=== PATIENT | female | born 1965 | race Caucasian/White ===

== ENCOUNTER → 2016-10-05 | Outpatient (CLI) | payer OTHER ==
--- NOTE | 2016-10-05 18:19 | PCVCIMAG ---
APPROVED REPORT Exam: Stress Echocardiogram Indication: Hypertension,lt arm tingling,fam hx early onset cad Patient Location: Echo lab Stress Nurse: Rhiannon Barros RN Status: routine Ht: 5 ft 7 in HR: 74 bpm BP: 110/80 mmHg Rhythm: NSR Medical History Medical History: HTN, No history of CAD Cardiac Risk Factors: HTN, FHX of CAD Pretest Chest Pain Characteristics: No chest pain Procedure The patient underwent an Exercise Stress Test using the Monique Protocol. Blood pressure, heart rate, and EKG were monitored. An Echocardiogram was performed by x ray service technician in four stages in quad fashion. At peak stress, four selected images were obtained and placed side by side with resting images for comparison. Stress Test Details Stress Test: Exercise stress testing was performed using a Monique protocol. HR Resting HR: 74 bpmMax Heart Rate (APMHR): 167 bpm Max HR Achieved: 184 bpmTarget HR (85% APMHR): 141 bpm % of APMHR: 110 Recovery HR: 97 bpm HR response to stress: Normal HR response to stress BP Resting BP: 110/80 mmHg Max BP: 130/66 mmHg Recovery BP: 100/60 mmHg ECG Resting ECG: Sinus Rhythm Stress ECG: Sinus Rhythm ST Change: Non-ischemic Arrhythmia: Rare PVCs Recovery ECG: Sinus Rhythm Recovery ST Change: Non-ischemic Recovery Arrhythmia: None Clinical Reason for Termination: Maximal effort, Dyspnea Stress Symptoms: None Exercise duration: 11 min 04 sec Highest Stage Achieved: Stage 4: 4.2 mph at 16% grade. Exercise capacity: 13.4 METs Overall Exercise Capacity for Age: Good Angina Score: None Stress ECG Conclusion The patient exercised according to the MONIQUE protocol for11:04 min, achieving a work level of Max. METS: 13.4 . The resting heart rate of 74 bpm ruben to a maximal heart rate of 184 bpm. This value represents 110 % of the maximal, age-predicted heart rate. The resting blood pressure of 110/80 mmHg, ruben to a maximum blood pressure of 130/66 mmHg. The exercise test was stopped due to fatigue and dyspnea. Pre-Stress Echo The resting Echocardiogram showed normal left ventricular contractility with an estimated Ejection Fraction of about 55-60%. Normal wall motion in all segments on baseline images. Post-Stress Echo The stress Echocardiogram showed normal left ventricular contractility with an estimated Ejection Fraction of about 65-70%. Normal augmentation of wall motion in all segments on post stress images. Clinical No clinical or ECG evidence for ischemia. Conclusion Clinical Response: Non-ischemic Exercise Capacity: Superior Stress ECG Response: Non-ischemic Stress Echo Images: Non-ischemic No clinical, EKG or echocardiographic evidence for ischemia. No echocardiographic evidence for exercise induced ischemia. Normal stress echocardiogram with maximal exercise stress. No prior study available for comparison. <Conclusion> No clinical, EKG or echocardiographic evidence for ischemia. No echocardiographic evidence for exercise induced ischemia. Normal stress echocardiogram with maximal exercise stress.
== END | disposition home or self-care (01) ==
LOC: PCVCIMAG 15:32
PROVIDERS: ATTEND Internal Medicine Cardiovascular Disease
DX: I49.3 Ventricular premature depolarization (principal); I10 Essential (primary) hypertension; Z82.49 Family history of ischemic heart disease and other diseases of the circulatory system
CPT/HCPCS: 93325; 93351

== ENCOUNTER → 2016-12-05 | Outpatient (CLI) | payer OTHER ==
--- NOTE | 2016-12-05 10:41 | PCVCIMAG ---
EXAM: BILATERAL CAROTID DUPLEX INDICATION: Carotid Occlusive Disease. FINDINGS: Doppler Measurements (centimeters per second): RIGHT: Peak CCA-86, Peak ECA-105, Diastolic ICA-34, Peak ICA-84, ICA/CCA Ratio-1.0. LEFT: Peak CCA-100, Peak ECA-101, Diastolic ICA-35, Peak ICA-104, ICA/CCA Ratio-1.0. RIGHT CAROTID: The carotid bulb has mild plaque. The proximal internal carotid artery shows <40% stenosis. The common carotid artery shows no significant stenosis. The external carotid artery shows no significant stenosis. LEFT CAROTID: The carotid bulb has moderate plaque. The proximal internal carotid artery shows <40% stenosis. The common carotid artery shows no significant stenosis. The external carotid artery shows no significant stenosis. Antegrade flow in both vertebral arteries. IMPRESSION: <40% stenosis of the right internal carotid artery with mild plaque. <40% stenosis of the left internal carotid artery with moderate plaque. LOC:[place] [id number]
--- NOTE | 2016-12-05 11:06 | PCVCIMAG ---
EXAM: ULTRASOUND OF THE THYROID INDICATION: Thyroid nodules. FINDINGS: The right thyroid lobe measures 4.7 x 1.4 x 2.0 cm. The left thyroid lobe measures 4.7 x 1.3 x 1.7 cm. 1.1 x 1.3 x 2.3 cm irregular nodule lower pole left thyroid lobe which contains internal calcification. IMPRESSION: 2.3 cm indeterminate nodule lower pole left thyroid lobe. Further evaluation by ENT is recommended. LOC:[id number]
== END | disposition home or self-care (01) ==
LOC: PCVCIMAG 08:24
PROVIDERS: ATTEND Internal Medicine Cardiovascular Disease
DX: I65.23 Occlusion and stenosis of bilateral carotid arteries (principal); E78.00 Pure hypercholesterolemia, unspecified
CPT/HCPCS: 76536; 80061; 93880

== ENCOUNTER → 2018-05-08 | Outpatient (CLI) | payer OTHER ==
--- NOTE | 2018-05-08 20:10 | PCVCIMAG ---
EXAM: ULTRASOUND OF THE THYROID INDICATION: Thyroid nodules. FINDINGS: The right thyroid lobe measures 1.6 x 1.7 x 5.3 cm. The left thyroid lobe measures 1.5 x 1.6 x 4.6 cm. No right thyroid lobe nodules. 0.9 x 1.0 x 1.4 cm slightly irregular solid nodule mid/lower left thyroid lobe containing central calcification has decreased slightly in size since 2017 study indicating this is most likely benign. IMPRESSION: 1.4 cm solid nodule mid/lower left thyroid lobe has decreased slightly in size since prior study indicating this is most likely benign. LOC:OFFICE
== END | disposition home or self-care (01) ==
LOC: PCVCIMAG 14:58
PROVIDERS: ATTEND Internal Medicine Cardiovascular Disease
DX: E04.1 Nontoxic single thyroid nodule (principal)
CPT/HCPCS: 76536